=== PATIENT | male | born 1965 ===

== ENCOUNTER 2021-09-27 10:57 | Inpatient (IN) | payer OTHER ==
[~2021-09-27] VITALS: Ht 175.3 cm; Wt 119.7 kg
[2021-09-27] MEDS ORDERED: MICARDIS80 MG PO (12:13)
[2021-09-29] MEDS ORDERED: CHLORDIAZEPOXI1 EACH (11:14)
[2021-09-29] MEDS ORDERED: CLONAZEPAM2 MG (11:14)
[2021-09-29] MEDS ORDERED: FLUOXETINE HCL20 MG (11:15)
[2021-09-29] MEDS ORDERED: DEXILANT60 MG (11:15)
[2021-09-29] MEDS ORDERED: HYDROXYZINE PAM25 MG (11:15)
== END 2021-11-05 16:32 | disposition home or self-care (01) | DRG 329 ==
LOC: ADM 11:15 → CIR.AMB 09-29 07:00 → SURH 09-29 07:42 → O/R 09-29 07:42 → CIR.AMB 09-29 11:15 → SURH 09-29 11:15 → EDSTATUS 09-29 11:15 → SURH 09-29 14:02
PROVIDERS: ADMIT Colon & Rectal Surgery; ATTEND Colon & Rectal Surgery
PROC: 0DBP4ZZ Excision of Rectum, Percutaneous Endoscopic Approach (ICD-10-PCS; 2021-09-29)
PROC: 4A12X4Z Monitoring of Cardiac Electrical Activity, External Approach (ICD-10-PCS; 2021-09-29)
PROC: 0DTN4ZZ Resection of Sigmoid Colon, Percutaneous Endoscopic Approach (ICD-10-PCS; principal; 2021-09-29 07:00)
PROC: B24BZZZ Ultrasonography of Heart with Aorta (ICD-10-PCS; 2021-09-30)
PROC: BW28ZZZ Computerized Tomography (CT Scan) of Head (ICD-10-PCS; 2021-09-30)
PROC: 30233N1 Transfusion of Nonautologous Red Blood Cells into Peripheral Vein, Percutaneous Approach (ICD-10-PCS; 2021-10-01)
PROC: 0DJD8ZZ Inspection of Lower Intestinal Tract, Via Natural or Artificial Opening Endoscopic (ICD-10-PCS; 2021-10-07)
PROC: 02HV33Z Insertion of Infusion Device into Superior Vena Cava, Percutaneous Approach (ICD-10-PCS; 2021-10-07)
PROC: 0W9J30Z Drainage of Pelvic Cavity with Drainage Device, Percutaneous Approach (ICD-10-PCS; 2021-10-11)
PROC: 0W9J30Z Drainage of Pelvic Cavity with Drainage Device, Percutaneous Approach (ICD-10-PCS; 2021-10-18)
PROC: BW21YZZ Computerized Tomography (CT Scan) of Abdomen and Pelvis using Other Contrast (ICD-10-PCS; 2021-10-23)
PROC: BW21YZZ Computerized Tomography (CT Scan) of Abdomen and Pelvis using Other Contrast (ICD-10-PCS; 2021-10-27)
PROC: 0W9J30Z Drainage of Pelvic Cavity with Drainage Device, Percutaneous Approach (ICD-10-PCS; 2021-11-01)
DX: K57.20 Diverticulitis of large intestine with perforation and abscess without bleeding (principal); K66.1 Hemoperitoneum; K92.1 Melena; D62 Acute posthemorrhagic anemia; K68.11 Postprocedural retroperitoneal abscess; K91.89 Other postprocedural complications and disorders of digestive system; K56.7 Ileus, unspecified; R10.13 Epigastric pain; K58.9 Irritable bowel syndrome, unspecified; R55 Syncope and collapse; R00.0 Tachycardia, unspecified; K64.8 Other hemorrhoids; E87.6 Hypokalemia; I95.89 Other hypotension; F43.23 Adjustment disorder with mixed anxiety and depressed mood; D64.9 Anemia, unspecified; E11.9 Type 2 diabetes mellitus without complications; Z79.4 Long term (current) use of insulin; E66.01 Morbid (severe) obesity due to excess calories; Z68.39 Body mass index [BMI] 39.0-39.9, adult